=== PATIENT | female | born 1985 | race Caucasian/White ===

== ENCOUNTER 2016-12-18 19:23 | Emergency (ER) | payer OTHER ==
[2016-12-18 19:31] VITALS: BP 136/78; PULSE 82; TEMP 97.5; BMI 31.1
--- NOTE | 2016-12-18 20:12 | PDOC ---
History of Present Illness - General Chief Complaint: Pain Stated Complaint: ABD PAIN Time Seen by Provider: 12/18/16 19:32 History Source: Patient Exam Limitations: No Limitations - History of Present Illness Travel History: No Timing/Duration: reports: intermittent Abdominal Pain Onset Location: reports: LLQ Pain Radiation: reports: no radiation Past History - Travel Traveled outside of the country in the last 30 days: No Close contact w/someone who was outside of country & ill: No - Past Medical History Allergies/Adverse Reactions: Allergies Allergy/AdvReac Type Severity Reaction Status Date / Time No Known Allergies Allergy Verified 12/18/16 19:31 Home Medications: Ambulatory Orders NK [No Known Home Medication] 12/18/16 Asthma: No Cancer: No Cardiac Disorders: No Diabetes: No HTN: No Seizures: No Thyroid Disease: No - Reproductive History (#): 2 Para: 0 Cervical CA: No Dysfunctional Uterine Bleeding: No Ectopic : No Endometrial CA: No Polycystic Ovaries: No Therapeutic (s) & number: Yes (1) Tubal Ligation: No Spontaneous : 0 - Immunization History Immunization Up to Date: Yes - Psycho/Social/Smoking Cessation Hx Anxiety: No Suicidal Ideation: No Smoking Status: No Smoking History: Never smoked Years of Tobacco Use: 0 Have you smoked in the past 12 months: No Number of Cigarettes Smoked Daily: 0 Cigars Per Day: 0 Information on smoking cessation initiated: No Hx Alcohol Use: No Drug/Substance Use Hx: No Substance Use Type: None Hx Substance Use Treatment: No Abd/GI Specific PMHX - Complaint Specific PMHX Colitis: No Diverticulitis: No Gall Bladder Disease: No GERD: No Hepatitis: No Review of Systems - Review of Systems Able to Perform ROS?: Yes Comments:: 12/18/16 20:10 CONSTITUTIONAL: Absent: fever, chills, diaphoresis, generalized weakness, malaise, loss of appetite HEENT: Absent: rhinorrhea, nasal congestion, throat pain, throat swelling, difficulty swallowing, mouth swelling, ear pain, eye pain, visual Changes CARDIOVASCULAR: Absent: chest pain, loss of consciousness, palpitations, irregular heart rate, peripheral edema RESPIRATORY: Absent: cough, shortness of breath, dyspnea with exertion, orthopnea, wheezing, stridor, hemoptysis GASTROINTESTINAL: LLQ pain on palp Absent: abdominal distension, nausea, vomiting, diarrhea, constipation, melena , hematochezia GENITOURINARY: Absent: dysuria, frequency, urgency, hesitancy, hematuria, flank pain, genital pain MUSCULOSKELETAL: Absent: myalgia, arthralgia, joint swelling SKIN: Absent: rash, itching, pallor HEMATOLOGIC/IMMUNOLOGIC: Absent: easy bleeding, easy bruising, lymphadenopathy, frequent infections ENDOCRINE: Absent: unexplained weight gain, unexplained weight loss, heat intolerance, cold intolerance NEUROLOGIC: Absent: headache, focal weakness or paresthesias, dizziness, unsteady gait, seizure, mental status changes, bladder or bowel incontinence PSYCHIATRIC: Absent: anxiety, depression, suicidal or homicidal ideation, hallucinations. Is the patient limited Serbian proficient: No *Physical Exam - Vital Signs Last Vital Signs Temp Pulse Resp BP Pulse Ox 97.5 F L 82 16 136/78 99 12/18/16 19:28 12/18/16 19:28 12/18/16 19:28 12/18/16 19:28 12/18/16 19:28 - Physical Exam Comments: 12/18/16 20:10 GENERAL: Well developed, well nourished. Awake and alert. No acute distress. HEENT: Normocephalic, atraumatic. PERRLA, EOMI. No conjunctival pallor. Sclera are non- icteric. Moist mucous membranes. Oropharynx is clear. NECK: Supple. Full ROM. No JVD. Carotid pulses 2+ and symmetric, without bruits. No thyromegaly. No lymphadenopathy. CARDIOVASCULAR: Regular rate and rhythm. No murmurs, rubs, or gallops. Distal pulses are 2+ and symmetric. PULMONARY: No evidence of respiratory distress. Lungs clear to auscultation bilaterally. No wheezing, rales or rhonchi. ABDOMINAL: +LLQ pain Soft. Non-distended. No rebound or guarding. No organomegaly. Normoactive bowel sounds. MUSCULOSKELETAL Normal range of motion at all joints. No bony deformities or tenderness. No CVA tenderness. EXTREMITIES: No cyanosis. No clubbing. No edema. No calf tenderness. SKIN: Warm and dry. Normal capillary refill. No rashes. No jaundice. NEUROLOGICAL: Alert, awake, appropriate. Cranial nerves 2-12 intact. No deficits to light touch and temperature in face, upper extremities and lower extremities. No motor deficits in the in face, upper extremities and lower extremities. Normoreflexic in the upper and lower extremities. Normal speech. Toes are down- going bilaterally. Gait is normal without ataxia. PSYCHIATRIC: Cooperative. Good eye contact. Appropriate mood and affect. ED Treatment Course - LABORATORY CBC & Chemistry Diagram: 12/18/16 20:22 12/18/16 20:22 Progress Note - Progress Note Progress Note: 31-year-old female presents to the emergency department complaining of LLQ and left suprapubic abdominal pain. Pain is described as 8/10 discomfort that is unable to describe the type of pain. The pain is exacerbated on movements and there are no alleviating factors. Pain is associated with some nausea but no vomiting area patient denies fever, chills, headache, dizziness, lightheadedness , chest pain, shortness of breath, urinary symptoms: Frequency/urgency/hesitancy , hematuria. LMP: 11/26/2016 2034hrs: Patient was informed that she needs a CAT scan of her abdomen and pelvis with by mouth and IV contrast to rule out appendicitis vs diverticulitis. Patient adamantly refuses to have a CAT scan done. Patient says she will have a transvaginal ultrasound to R/O ovarian cyst and will sign out AGAINST MEDICAL ADVICE for the abdominal CAT scan. Patient was advised to return back to the emergency department immediately for persistent/consistent/ worsening or severe pain. Patient agrees with the plan. *DC/Admit/Observation/Transfer Diagnosis at time of Disposition: Cyst of ovary Qualifiers: Laterality: left Qualified Code(s): N83.20 - Unspecified ovarian cysts - Discharge Dispostion Disposition: HOME Condition at time of disposition: Fair - Referrals Referrals: Alec Waldron MD [Staff Physician] - - Patient Instructions Printed Discharge Instructions: DI for Ovarian Cyst Additional Instructions: Follow up with your physician/Allergist Immunologist You refused the CAT scan while in the emergency department today for lower abdominal pains. Please return back to the emergency department for any severe/ persistent or worsening symptoms.
[2016-12-18] MEDS ORDERED: SODIUM CHLORIDE 1,000 ML IV STA (20:13)
[2016-12-18 20:37] LABS: BASOPHIL 0.5 % (0-2.0); EOSINOPHIL 1.2 % (0-4.5); MCH 30.1 pg (25.7-33.7); MCHC 33.7 g/dl (32.0-36.0); MEAN CELL VOLUME 89.2 fl (80-96); NEUTROPHILS 62.8 % (42.8-82.8); PLATELET COUNT 283 K/MM3 (134-434); RDW 13.4 % (11.6-15.6); WHITE BLOOD COUNT 9.1 K/mm3 (4.0-10.0)
[2016-12-18 20:48] LABS: URINE APPEARANCE CLEAR; URINE BILIRUBIN NEGATIVE (NEGATIVE); URINE BLOOD NEGATIVE (NEGATIVE); URINE COLOR YELLOW; URINE GLUCOSE (UA) NEGATIVE (NEGATIVE); URINE KETONE NEGATIVE (NEGATIVE); URINE NITRITE NEGATIVE (NEGATIVE); URINE PROTEIN NEGATIVE (NEGATIVE); URINE UROBILINOGEN NEGATIVE E.U./dl (0.2-1.0)
[2016-12-18 20:51] LABS: URINE LEUK ESTERASE TRACE (NEGATIVE)
[2016-12-18 20:53] LABS: URINE MUCUS RARE; URINE RBC 2 /hpf (0-3); URINE WBC 7 /hpf (3-5)
[2016-12-18 21:08] LABS: ALBUMIN 4.4 g/dl (3.4-5.0); ALK PHOS 74 U/L (45-117); ANION GAP 8 (8-16); BILIRUBIN,TOTAL 0.3 mg/dL (0.2-1.0); CALCIUM 9.3 mg/dL (8.5-10.1); CO2 28 mmol/L (21-32); CREATININE 0.7 mg/dL (0.55-1.02); GLUCOSE,RANDOM 109 mg/dL (74-106); SGOT/AST 11 U/L (15-37); SGPT/ALT 24 U/L (12-78)
[2016-12-18] MEDS ORDERED: KETOROLAC TROMETHAMINE 30 MG/1 ML VIAL IVPUSH ONE (21:53)
[2016-12-18] MEDS ORDERED: KETOROLAC TROMETHAMINE 30 MG/1 ML VIAL ONE (21:54)
== END 2016-12-18 23:42 | disposition home or self-care (01) ==
LOC: JER 19:23 → SUPCPDRO 19:23 → JER 23:42
PROC: 3E0337Z Introduction of Electrolytic and Water Balance Substance into Peripheral Vein, Percutaneous Approach (ICD-10-PCS; principal; 2016-12-18)
PROC: 3E0333Z Introduction of Anti-inflammatory into Peripheral Vein, Percutaneous Approach (ICD-10-PCS; 2016-12-18)
DX: N83.292 Other ovarian cyst, left side (principal); N83.291 Other ovarian cyst, right side
CPT/HCPCS: 36415; 76830-TC; 80053; 81003; 81015; 84703; 85025; 99283-25

== ENCOUNTER 2017-06-19 21:38 | Emergency (ER) | payer OTHER ==
[2017-06-19 21:44] VITALS: BP 115/65; PULSE 102; TEMP 98.5; BMI 31.1
[2017-06-19 23:27] LABS: BASOPHIL 0.5 % (0-2.0); MCH 31.1 pg (25.7-33.7); MCHC 34.4 g/dl (32.0-36.0); MEAN CELL VOLUME 90.5 fl (80-96); MEAN PLT VOLUME 7.7 fl (7.5-11.1); NEUTROPHILS 69.8 % (42.8-82.8); PLATELET COUNT 213 K/MM3 (134-434); RDW 12.9 % (11.6-15.6); WHITE BLOOD COUNT 9.4 K/mm3 (4.0-10.0)
[2017-06-19 23:31] LABS: URINE APPEARANCE SLCLOUDY; URINE BILIRUBIN NEGATIVE (NEGATIVE); URINE BLOOD 3+ (NEGATIVE); URINE COLOR YELLOW; URINE GLUCOSE (UA) NEGATIVE (NEGATIVE); URINE KETONE NEGATIVE (NEGATIVE); URINE LEUK ESTERASE TRACE (NEGATIVE); URINE NITRITE NEGATIVE (NEGATIVE); URINE UROBILINOGEN NEGATIVE mg/dL (0.2-1.0)
--- NOTE | 2017-06-19 23:38 | PDOC ---
History of Present Illness - General Chief Complaint: Pain, Acute Stated Complaint: ABDOMINAL PAIN Time Seen by Provider: 06/19/17 22:47 - History of Present Illness Initial Comments: 06/19/17 23:34 CHIEF COMPLAINT: abdominal pain, diarrhea HISTORY OF PRESENT ILLNESS: 31 yo F with no PMH presents to ED with abdominal pain and diarrhea x 1 day. Patient reports that she has had 4 episodes of diarrhea since last night around 11pm, last episode of diarrhea was today at 3 pm. Patient states she is currently menstruating. She denies any rectal bleeding or blood in the stool. Patient denies any nausea, vomiting, fever, or chills, and states she does not remember what she ate yesterday. PAST MEDICAL HISTORY: Denies past medical history FAMILY HISTORY: Denies SOCIAL HISTORY: Denies tobacco, alcohol, illicit drug use. SURGICAL HISTORY: ALLERGIES: No known drug allergies REVIEW OF SYSTEMS General/Constitutional: Denies fever or chills. Denies weakness, weight change. HEENT: Denies change in vision. Denies ear pain or discharge. Denies sore throat. Cardiovascular: Denies chest pain or shortness of breath. Respiratory: Denies cough, wheezing, or hemoptysis. Gastrointestinal: Diffuse abdominal pain, diarrhea x 1 day. Denies nausea, vomiting. Denies rectal bleeding. Genitourinary: Denies dysuria, frequency, or change in urination. Musculoskeletal: Denies joint or muscle swelling or pain. Denies neck or back pain. Skin and breasts: Denies rash or easy bruising. Neurologic: Denies headache, vertigo, loss of consciousness, or loss of sensation. PHYSICAL EXAM General Appearance: Well-appearing, appropriately dressed. No apparent distress. HEENT: EOMI, PERRLA. No conjunctival pallor. No photophobia, scleral icterus. Respiratory/Chest: Lungs CTAB. Cardiovascular: RRR. S1, S2. Gastrointestinal/Abdominal: Hyperactive bowel sounds. Abdomen soft, non- distended. No tenderness or rebound tenderness. No organomegaly, pulsatile mass, guarding, hernia, hepatomegaly, splenomegaly. Musculoskeletal/Extremities: Normal inspection. FROM of all extremities, normal capillary refill. Pelvis Stable. No CVA tenderness. No tenderness to extremities, pedal edema, swelling, erythema or deformity. Integumentary: Appropriate color, dry, warm. No cyanosis, erythema, jaundice or rash Neurologic: asp net developer II-XII intact. Fully oriented, alert. Appropriate mood/affect. Motor strength 5/5. No appreciable EOM palsy, facial droop or sensory deficit. Past History - Past Medical History Allergies/Adverse Reactions: Allergies Allergy/AdvReac Type Severity Reaction Status Date / Time No Known Allergies Allergy Verified 12/18/16 19:31 Home Medications: Ambulatory Orders Loperamide HCl/Simethicone [Imodium Multi-Symptom Rel Cplt] 1 tab PO Q6H PRN # 28 tablet 06/20/17 Asthma: No Cancer: No Cardiac Disorders: No Diabetes: No HTN: No Seizures: No Thyroid Disease: No - Reproductive History Is Patient Now?: No (#): 2 Para: 0 Cervical CA: No Dysfunctional Uterine Bleeding: No Ectopic : No Endometrial CA: No Polycystic Ovaries: No Therapeutic (s) & number: Yes (1) Tubal Ligation: No Spontaneous : 0 - Immunization History Immunization Up to Date: Yes - Psycho/Social/Smoking Cessation Hx Anxiety: No Suicidal Ideation: No Smoking Status: No Smoking History: Never smoked Years of Tobacco Use: 0 Have you smoked in the past 12 months: No Number of Cigarettes Smoked Daily: 0 Cigars Per Day: 0 Hx Alcohol Use: No Drug/Substance Use Hx: No Substance Use Type: None Hx Substance Use Treatment: No Abd/GI Specific PMHX - Complaint Specific PMHX Colitis: No Diverticulitis: No Gall Bladder Disease: No GERD: No Hepatitis: No *Physical Exam - Vital Signs Last Vital Signs Temp Pulse Resp BP Pulse Ox 98.5 F 102 H 16 115/65 98 06/19/17 21:43 06/19/17 21:43 06/19/17 21:43 06/19/17 21:43 06/19/17 21:43 ED Treatment Course - LABORATORY CBC & Chemistry Diagram: 06/19/17 23:15 06/19/17 23:15 - ADDITIONAL ORDERS Additional order review: 06/19/17 23:15 RBC 4.40 MCV 90.5 MCHC 34.4 RDW 12.9 MPV 7.7 Neutrophils % 69.8 Lymphocytes % 19.1 D Monocytes % 9.6 Eosinophils % 1.0 Basophils % 0.5 Medical Decision Making - Medical Decision Making 06/19/17 23:38 31 yo F with no PMH presents to ED with abdominal pain and diarrhea x 1 day. -CBC, CMP -UA, UCx 06/20/17 02:09 Labs unremarkable. *DC/Admit/Observation/Transfer Diagnosis at time of Disposition: Diarrhea Qualifiers: Diarrhea type: unspecified type Qualified Code(s): R19.7 - Diarrhea, unspecified - Discharge Dispostion Admit: No - Prescriptions Prescriptions: Loperamide HCl/Simethicone [Imodium Multi-Symptom Rel Cplt] 1 tab PO Q6H PRN # 28 tablet PRN Reason: Diarrhea - Referrals Referrals: Jomar Sotelo [Primary Care Provider] - - Patient Instructions Printed Discharge Instructions: DI for Diarrhea and Traveler's Diarrhea -- Adult Additional Instructions: Please take medications as prescribed and follow up with your primary care doctor within the next week. If you experience persistent diarrhea despite the medications, rectal bleeding, vomiting, fever, or any new or worsening symptoms , please return to the ER.
[2017-06-19 23:41] LABS: URINE PROTEIN 1+ (NEGATIVE)
[2017-06-19 23:47] LABS: URINE RBC 1839 /hpf (0-3); URINE WBC 21 /hpf (3-5)
[2017-06-19 23:48] LABS: URINE BACTERIA RARE /hpf (NONE SEEN); URINE MUCUS MANY
[2017-06-19 23:52] LABS: ANION GAP 8 (8-16); CALCIUM 8.6 mg/dL (8.5-10.1); CO2 28 mmol/L (21-32); CREATININE 0.6 mg/dL (0.55-1.02); GLUCOSE,RANDOM 106 mg/dL (74-106); SGOT/AST 8 U/L (15-37); SGPT/ALT 21 U/L (12-78)
[2017-06-19 23:54] LABS: BILIRUBIN,TOTAL 0.5 mg/dL (0.2-1.0); TOT PROT 7.2 g/dl (6.4-8.2)
[2017-06-19 23:55] LABS: ALK PHOS 66 U/L (45-117)
[2017-06-20] MEDS ORDERED: LOPERAMIDE HCL 2 MG CAPSULE PO ONE (00:13)
[2017-06-20] MEDS ORDERED: SIMETHICONE 80 MG TAB.CHEW (FP) PO ONE (00:14)
[2017-06-20] MEDS ORDERED: LOPERAMIDE HCL 2 MG CAPSULE ONE (00:20)
--- NOTE | 2017-06-23 08:33 | PDOC ---
History of Present Illness - General Chief Complaint: Pain, Acute Stated Complaint: ABDOMINAL PAIN Time Seen by Provider: 06/19/17 22:47 Past History - Past Medical History Allergies/Adverse Reactions: Allergies Allergy/AdvReac Type Severity Reaction Status Date / Time No Known Allergies Allergy Verified 12/18/16 19:31 Home Medications: Ambulatory Orders Loperamide HCl/Simethicone [Imodium Multi-Symptom Rel Cplt] 1 tab PO Q6H PRN # 28 tablet 06/20/17 Asthma: No Cancer: No Cardiac Disorders: No Diabetes: No HTN: No Seizures: No Thyroid Disease: No - Reproductive History Is Patient Now?: No (#): 2 Para: 0 Cervical CA: No Dysfunctional Uterine Bleeding: No Ectopic : No Endometrial CA: No Polycystic Ovaries: No Therapeutic (s) & number: Yes (1) Tubal Ligation: No Spontaneous : 0 - Immunization History Immunization Up to Date: Yes - Psycho/Social/Smoking Cessation Hx Anxiety: No Suicidal Ideation: No Smoking Status: No Smoking History: Never smoked Years of Tobacco Use: 0 Have you smoked in the past 12 months: No Number of Cigarettes Smoked Daily: 0 Cigars Per Day: 0 Hx Alcohol Use: No Drug/Substance Use Hx: No Substance Use Type: None Hx Substance Use Treatment: No *Physical Exam - Vital Signs Last Vital Signs Temp Pulse Resp BP Pulse Ox 98.5 F 102 H 16 115/65 98 06/19/17 21:43 06/19/17 21:43 06/19/17 21:43 06/19/17 21:43 06/19/17 21:43 ED Treatment Course - LABORATORY CBC & Chemistry Diagram: 06/19/17 23:15 06/19/17 23:15 - ADDITIONAL ORDERS Additional order review: 06/19/17 23:15 Urine Culture - Final Urine - Urine Clean Catch Contaminated: Please Repeat 06/19/17 23:15 RBC 4.40 MCV 90.5 MCHC 34.4 RDW 12.9 MPV 7.7 Neutrophils % 69.8 Lymphocytes % 19.1 D Monocytes % 9.6 Eosinophils % 1.0 Basophils % 0.5 - Medications Given in the ED: ED Medications Discontinued Medications Generic Name Dose Route Start Last Admin Trade Name Freq PRN Reason Stop Dose Admin Loperamide HCl 4 mg 06/20/17 00:13 06/20/17 00:32 Imodium - PO 06/20/17 00:14 4 mg ONCE ONE Administration Simethicone 80 mg 06/20/17 00:14 06/20/17 00:32 Mylicon - PO 06/20/17 00:15 80 mg ONCE ONE Administration Medical Decision Making - Medical Decision Making 06/23/17 08:29 Patient seen and examined with an BUSINESS ADMINISTRATION INSTRUCTOR Cathi. Agree with assessment and plan. *DC/Admit/Observation/Transfer Diagnosis at time of Disposition: Diarrhea Qualifiers: Diarrhea type: unspecified type Qualified Code(s): R19.7 - Diarrhea, unspecified - Discharge Dispostion Disposition: HOME Condition at time of disposition: Stable - Prescriptions Prescriptions: Loperamide HCl/Simethicone [Imodium Multi-Symptom Rel Cplt] 1 tab PO Q6H PRN # 28 tablet PRN Reason: Diarrhea - Referrals Referrals: Jomar Sotelo [Primary Care Provider] - - Patient Instructions Printed Discharge Instructions: DI for Diarrhea and Traveler's Diarrhea -- Adult Additional Instructions: Please take medications as prescribed and follow up with your primary care doctor within the next week. If you experience persistent diarrhea despite the medications, rectal bleeding, vomiting, fever, or any new or worsening symptoms , please return to the ER. - Post Discharge Activity
== END 2017-06-20 00:47 | disposition home or self-care (01) ==
LOC: JER 21:38
DX: R19.7 Diarrhea, unspecified (principal)
CPT/HCPCS: 36415; 80053; 81003; 81015; 83690; 84703; 85025; 87086; 99282-25

== ENCOUNTER 2017-07-24 15:08 | Emergency (ER) | payer OTHER ==
[2017-07-24 15:11] VITALS: BMI 30.7
--- NOTE | 2017-07-24 16:20 | PDOC ---
Attending Attestation - Resident Resident Name: Neeru Ferris - ED Attending Attestation I have performed the following: I have examined & evaluated the patient, The case was reviewed & discussed with the resident, I agree w/resident's findings & plan, Exceptions are as noted - HPI HPI: 07/24/17 16:49 31yo F hx ovarian cyst p/w left sided pelvic pain since . Pain is squeezing and constant and at times radiating to L flank. 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 Reports pain was a 5/10 on but is a 3/10 today. Feels like her previous ovarian cyst pain. +nausea , no vomiting. Denies diarrhea. Denies abd surgeries. Denies abd distention, had a normal BM this morning. Denies vaginal DC, dysuria, bleeding, frequency. Sexually active with 1 partner for many years. Hx chlamydia 10yrs ago. LMP . Otherwise denies fevers, chills, CP, SOB, LE edema, rashes, or dysuria. - Physicial Exam PE: 07/24/17 17:10 GENERAL: Awake, alert, and fully oriented, in no acute distress HEAD: No signs of trauma EYES: PERRLA, EOMI, sclera anicteric, conjunctiva clear ENT: Auricles normal inspection, hearing grossly normal, nares patent, oropharynx clear without exudates. Moist mucosa NECK: Normal ROM, supple, no lymphadenopathy, JVD, or masses LUNGS: Breath sounds equal, clear to auscultation bilaterally. No wheezes, and no crackles HEART: Regular rate and rhythm, normal S1 and S2, no murmurs, rubs or gallops ABDOMEN: Soft, nontender, normoactive bowel sounds. No guarding, no rebound. No masses. No CVAT DENTURE MODEL MAKER: Normal external genitalia, os is closed, no midline or adnexal ttp, no vaginal DC or bleeding. No CMT. EXTREMITIES: Normal range of motion, no edema. No clubbing or cyanosis. No cords, erythema, or tenderness NEUROLOGICAL: Normal speech, cranial nerves intact, negative pronator drift, 5/ 5 strength in all 4 extremities, normal sensation to light touch in all 4 extremities, normal cerebellar exam, normal gait, normal reflexes and tone SKIN: Warm, Dry, normal turgor, no rashes or lesions noted. - Medical Decision Making 07/24/17 17:15 31yo F hx ovarian cysts p/w L sided pelvic pain since . Exam benign with no ttp on exam and normal DENTURE MODEL MAKER exam. Likely ovarian cyst but in a young menstruating female, ectopic also on differential. Will also consider diverticulitis vs UTI vs pyelo if TVUS negative. -labs -UPT -UA -TVUS -pain control -reassess
[2017-07-24 16:36] LABS: URINE APPEARANCE CLEAR; URINE BILIRUBIN NEGATIVE (NEGATIVE); URINE BLOOD 2+ (NEGATIVE); URINE COLOR LTYELLOW; URINE GLUCOSE (UA) NEGATIVE (NEGATIVE); URINE KETONE NEGATIVE (NEGATIVE); URINE LEUK ESTERASE NEGATIVE (NEGATIVE); URINE NITRITE NEGATIVE (NEGATIVE); URINE PROTEIN NEGATIVE (NEGATIVE); URINE UROBILINOGEN NEGATIVE mg/dL (0.2-1.0)
[2017-07-24 16:55] LABS: URINE MUCUS RARE; URINE RBC 1 /hpf (0-3); URINE WBC 1 /hpf (3-5)
[2017-07-24] MEDS ORDERED: KETOROLAC TROMETHAMINE 15 MG/ML VIAL IVPUSH ONE (17:03)
[2017-07-24] MEDS ORDERED: KETOROLAC TROMETHAMINE 15 MG/ML VIAL ONE (17:25)
[2017-07-24 17:28] LABS: BASOPHIL 0.6 % (0-2.0); EOSINOPHIL 1.2 % (0-4.5); MCH 31.4 pg (25.7-33.7); MCHC 34.6 g/dl (32.0-36.0); MEAN CELL VOLUME 90.9 fl (80-96); MEAN PLT VOLUME 7.4 fl (7.5-11.1); NEUTROPHILS 65.6 % (42.8-82.8); PLATELET COUNT 273 K/MM3 (134-434); RDW 13.1 % (11.6-15.6); WHITE BLOOD COUNT 9.9 K/mm3 (4.0-10.0)
--- NOTE | 2017-07-24 17:34 | PDOC ---
History of Present Illness - General Chief Complaint: Pain Stated Complaint: ABD PAIN Time Seen by Provider: 07/24/17 15:28 History Source: Patient Exam Limitations: No Limitations - History of Present Illness Initial Comments: 31yo F with PMH of Left ovarian cyst presents with Left lower abdominal pain. Pt reports pain began on (2 days ago). Pain is described as squeezing , constant, rated 5/10, sometimes radiating to Left flank. Pain is exacerbated with movement. Pt took Motrin which did help mitigate the pain. Pt also c/o vomiting and chills on when pain began, none since . She has had this type of pain before, and it feels like when she had the ovarian cyst. Pt's [id number] was able to watch the kids which allowed pt to come to ER today. 07/24/17 17:26 Past History - Past Medical History Allergies/Adverse Reactions: Allergies Allergy/AdvReac Type Severity Reaction Status Date / Time No Known Allergies Allergy Verified 07/24/17 15:11 Home Medications: Ambulatory Orders NK [No Known Home Medication] 07/24/17 Asthma: No Cancer: No Cardiac Disorders: No Diabetes: No HTN: No Seizures: No Thyroid Disease: No Other medical history: ovarian cyst - Surgical History Other Surgical History: 12/201507/24/17 17:34 - Reproductive History LMP comment: 07/17/17 (#): 2 Para: 0 Cervical CA: No Dysfunctional Uterine Bleeding: No Ectopic : No Endometrial CA: No Polycystic Ovaries: No Therapeutic (s) & number: Yes (1) Tubal Ligation: No Spontaneous : 0 - Immunization History Immunization Up to Date: Yes - Psycho/Social/Smoking Cessation Hx Anxiety: No Suicidal Ideation: No Smoking Status: No Smoking History: Never smoked Years of Tobacco Use: 0 Have you smoked in the past 12 months: No Number of Cigarettes Smoked Daily: 0 Cigars Per Day: 0 Information on smoking cessation initiated: No Hx Alcohol Use: No Drug/Substance Use Hx: No Substance Use Type: None Hx Substance Use Treatment: No Review of Systems - Review of Systems Able to Perform ROS?: Yes Is the patient limited Burundian proficient: No Constitutional: No: Chills, Diaphoresis, Fever HEENTM: No: Recent change in vision, Ear Pain, Nose Pain, Nose Congestion, Throat Pain Respiratory: No: Cough, Orthopnea, Shortness of Breath, Stridor, Wheezing Cardiac (ROS): No: Chest Pain, Edema, Irregular Heart Rate, Lightheadedness, Palpitations, Syncope, Chest Tightness ABD/GI: No: Abdominal Distended, Constipated, Diarrhea, Nausea, Vomiting, Abdominal cramping : No: Burning, Dysuria, Discharge, Hematuria Musculoskeletal: No: Joint Pain, Muscle Pain Integumentary: No: Bruising, Erythema, Rash Neurological: No: Headache, Numbness, Dizziness *Physical Exam - Vital Signs Last Vital Signs Temp Pulse Resp BP Pulse Ox 98.6 F 83 20 127/80 99 07/24/17 15:08 07/24/17 15:08 07/24/17 15:08 07/24/17 15:07/24/17 15:08 - Physical Exam General Appearance: Yes: Nourished, Appropriately Dressed. No: Apparent Distress HEENT: positive: EOMI, Normal Voice, Other (moist mucous membranes). negative: Pale Conjunctivae, Scleral Icterus (R), Scleral Icterus (L) Neck: positive: Trachea midline, Normal Thyroid, Supple. negative: Lymphadenopathy (R), Lymphadenopathy (L) Respiratory/Chest: positive: Lungs Clear, Normal Breath Sounds. negative: Respiratory Distress, Accessory Muscle Use Cardiovascular: positive: Regular Rhythm, Regular Rate, S1, S2. negative: Murmur Female Pelvic Exam: negative: CMT, adnexal tenderness Gastrointestinal/Abdominal: positive: Soft, Tenderness (Left lower quadrant/ suprapubic). negative: Distended, Guarding, Rebound Musculoskeletal: negative: CVA Tenderness, Decreased Range of Motion Extremity: negative: Swelling, Calf Tenderness, Erythema Integumentary: positive: Dry, Warm. negative: Rash Neurologic: positive: Fully Oriented, Alert, Normal Mood/Affect, Normal Response , Motor Strength 5/5 ED Treatment Course - LABORATORY CBC & Chemistry Diagram: 07/24/17 17:20 07/24/17 17:20 - ADDITIONAL ORDERS Additional order review: Laboratory Results 07/24/17 16:30 Urine Color Ltyellow Urine Appearance Clear Urine pH 6.0 Urine Protein Negative Urine Glucose (UA) Negative Urine Ketones Negative Urine Blood 2+ H Urine Nitrite Negative Urine Bilirubin Negative Urine Urobilinogen Negative Ur Leukocyte Esterase Negative Urine RBC 1 Urine WBC 1 Ur Epithelial Cells Rare Urine Mucus Rare - RADIOLOGY Radiology Studies Ordered: Category Date Time Status TRANSVAGINAL ULTRASOUND US [US] Stat Ultrasound 07/24/17 17:03 Ordered Medical Decision Making - Medical Decision Making 31yo F with PMH of Left ovarian cyst presents with Left lower abdominal / suprapubic pain x 2 days. Pt reports hx of chlamydia once 10 yrs ago. Pt denies hx of PID, nephrolithiasis. Ddx: ovarian cyst/rupture/torsion, PID, nephrolithiasis, pyelonephrosis On physical exam: (-) CVA tenderness, (-) cervical motion tenderness and (-) adnexal tenderness Pvc Loader: Dr. Roque at [facility], urine CBC with diff, CMP transvaginal US Toradol 15mg IVpush given for pain 07/24/17 17:39 07/24/17 19:37 urine (-) UA reveals +2 blood -> pt just finishing her menstrual cycle CBC with diff and CMP wnl transvaginal US reveals Left ovary measures 9.6cm x 3.2cm x 6.5cm and contains 2 hyperechoic cysts that may represent a dermoid. Called placed to [facility] ([facility], Dr. Aguirre is emergency communications operator). 07/24/17 20:39 3rd call placed to Dr. Aguirre. Waiting for a callback. 07/24/17 20:57 Pt can go home and f/u with Gynecology on an outpatient basis per Dr. Aguirre. *DC/Admit/Observation/Transfer Diagnosis at time of Disposition: Complex cyst of left ovary - Discharge Dispostion Disposition: HOME Condition at time of disposition: Improved Admit: No - Referrals Referrals: Jomar Sotelo [Primary Care Provider] - Graciela Roque DO [Staff Physician] - - Patient Instructions Printed Discharge Instructions: DI for Ovarian Cyst Additional Instructions: Please follow-up with Pvc Loader Dr. Roque on Wednesday or Wednesday (07/26/17 or ). Please return to the hospital for persistent or worsening symptoms of pain, or for any other medical emergency.
[2017-07-24 17:56] LABS: ALBUMIN 4.5 g/dl (3.4-5.0); ALK PHOS 68 U/L (45-117); ANION GAP 8 (8-16); BILIRUBIN,TOTAL 0.3 mg/dL (0.2-1.0); CALCIUM 9.2 mg/dL (8.5-10.1); CO2 29 mmol/L (21-32); CREATININE 0.7 mg/dL (0.55-1.02); GLUCOSE,RANDOM 117 mg/dL (74-106); SGOT/AST 8 U/L (15-37); SGPT/ALT 22 U/L (12-78)
[2017-07-24 19:23] VITALS: TEMP 98.5
[2017-07-24 21:10] VITALS: BP 108/72; PULSE 82
== END 2017-07-24 21:10 | disposition home or self-care (01) ==
LOC: JER 15:08
PROC: 3E0333Z Introduction of Anti-inflammatory into Peripheral Vein, Percutaneous Approach (ICD-10-PCS; principal; 2017-07-24)
DX: N83.292 Other ovarian cyst, left side (principal)
CPT/HCPCS: 36415; 76830-TC; 80053; 81003; 81015; 84703; 85025; 87086; 96374; 99284-25

== ENCOUNTER 2017-08-19 05:04 | Day surgery (SDC) | payer OTHER ==
[2017-08-17 10:33] VITALS: BMI 29.6
[2017-08-19] MEDS ORDERED: IBUPROFEN 800 MG/8 ML IJ IVPB PRN (07:15)
[2017-08-19] MEDS ORDERED: ACETAMINOPHEN 325 MG TABLET (FP) PO PRN (07:15)
[2017-08-19] MEDS ORDERED: LACTATED RINGERS SOLUTION 1,000 ML IV SCH (07:15)
--- NOTE | 2017-08-19 07:16 | HP ---
History & Physical Update - History History: No Change - Physical Physical: No Change - Assessment Assessment: No Change - Plan Plan: No Change (ovarian cyst - for laparosocpic ovarian cystectomy, possible oophorectomy)
[2017-08-19] MEDS ORDERED: MIDAZOLAM HCL 2 MG/2 ML SINGLE DOSE VIAL ONE (07:31)
[2017-08-19] MEDS ORDERED: SUCCINYLCHOLINE CHLORIDE 200 MG/10 ML VIAL ONE (07:31)
[2017-08-19] MEDS ORDERED: PROPOFOL 20 ML ONE (07:31)
[2017-08-19] MEDS ORDERED: ROCURONIUM BROMIDE 50 MG/5 ML VIAL ONE (07:33)
[2017-08-19] MEDS ORDERED: GLYCOPYRROLATE 0.2 MG/1 ML VIAL ONE (08:04)
[2017-08-19] MEDS ORDERED: DEXAMETHASONE SOD PHOSPHATE 4 MG/1 ML VIAL ONE (08:04)
[2017-08-19] MEDS ORDERED: KETOROLAC TROMETHAMINE 30 MG/1 ML VIAL ONE ×2 (08:13)
[2017-08-19] MEDS ORDERED: NEOSTIGMINE METHYLSULFATE 0.5 MG/ML - 10 ML MDV ONE (08:13)
[2017-08-19] MEDS ORDERED: HYDROmorphone HCL/PF 1 MG/ML VIAL (FOR PYXIS CHARGING ONLY) ONE ×2 (08:15→08:50)
[2017-08-19] MEDS ORDERED: ONDANSETRON 4 MG/2 ML VIAL IVPUSH PRN (08:33)
[2017-08-19] MEDS ORDERED: oxyCODONE HCL 5 MG TABLET PO PRN (08:33)
[2017-08-19] MEDS ORDERED: ESMOLOL HCL 10 ML ONE (08:41)
--- NOTE | 2017-08-19 08:56 | OP ---
Operative Note - Note: Operative Date: 08/19/17 (dictation number [id number]) Pre-Operative Diagnosis: left ovarian cyst Operation: laparoscopic left oophorectomy Findings: left adnexal torsion X 3 Post-Operative Diagnosis: Same as Pre-op Surgeon: Graciela Roque Town Administrator: Chano Norwood Anesthesiologist/CONSUMER INSIGHT ANALYST: Karina Sims Anesthesia: General Estimated Blood Loss (mls): 20 Operative Report Dictated: Yes
[2017-08-19] MEDS ORDERED: ADENOSINE 6 MG/2 ML VIAL IVPUSH ONE (08:57)
--- NOTE | 2017-08-19 09:21 | OP ---
DATE OF OPERATION: 08/19/2017 PREOPERATIVE DIAGNOSIS: Pelvic pain and left ovarian cyst. POSTOPERATIVE DIAGNOSIS: Pelvic pain and left ovarian cyst, left adnexal torsion x3. SURGEON: Graciela Roque DO HELPER DRIVER: JARROD Garcia ANESTHESIA: Valencia Sims, who provided general anesthesia. SPECIMENS: Included left ovary. ESTIMATED BLOOD LOSS: 20 mL. COMPLICATIONS: None. DISPOSITION: Stable to PACU. BRIEF HISTORY AND PROCEDURE: Patient is a 31-year-old female who had presented to the office with complaints of pelvic pain, diagnosed with a left ovarian cyst. The patient initially had opted to observe the cyst and await surgical intervention. After the ovarian cyst had persisted for approximately 6 months, the patient elected to undergo laparoscopic removal of the ovarian cyst, possible removal of the ovary. Patient was admitted to [facility] on August 19, 2017, in the outpatient setting. Consents for the procedure which were signed in the office were confirmed upon admission. The patient was taken back to the operating room where she was given general anesthesia by Valencia Sims and placed in the dorsal lithotomy position. A Downey catheter was placed under sterile conditions. The patient was prepped and draped in the usual sterile fashion and a hard timeout was performed. A 5-mm skin incision was created in the umbilicus, and the Veress needle was placed intraabdominally. The abdomen was insufflated with CO2 gas, and then a 5-mm trocar was placed intraabdominally. After confirmation of intraabdominal placement by visualization with the camera, the 2 bilateral lower quadrants were placed under direct visualization, 5 mm in the left lower quadrant, 11 mm in the right lower quadrant. After observation of the bilateral fallopian tubes and ovaries, the left ovary appeared to be enlarged with a cyst, and the left tube and ovary appeared to be torsed approximately 3 times. The ovary and left fallopian tube were detorsed at this time, and upon evaluation of the ovary there appeared to be no distinct viable ovarian tissue remaining. It appeared the cyst had encompassed the entire ovarian stroma. At this point it was decided to remove the entire ovary. The ovary was dissected off its attachment to the fallopian tube and to the uterus using the LigaSure device, and the specimen was placed in the anterior pelvis. Examination of the surgical site revealed a small amount of bleeding which was cauterized with the LigaSure device. Next, an EndoCatch bag was placed into the 11-mm trocar site, and the cyst was removed in its entirety without rupture through the 11-mm trocar site. Next, the inspection of the surgical site revealed good hemostasis. The fascia of the right lower quadrant port was reapproximated with a rklwvw-zv-slcic suture using 0 Vicryl from above, using a UR6 needle, and then inspection with the camera afterwards revealed good closure and no intraabdominal contents adhered to the incision site. One last suture with the Ruperto-Rome device was placed to ensure fascial closure under direct visualization with the scope. Next, the abdomen was desufflated, the trocars were removed, the skin was reapproximated using 0 Biosyn suture in a subcuticular fashion. Marcaine was placed subdermally, and the skin was reapproximated using Dermabond suture. The Downey catheter was removed. The patient was awoken from anesthesia. Sponge, needle, and instrument counts were reported to be correct. She was then taken to the PACU to recover in stable condition. GRACIELA ROQUE DO /[id number]
[2017-08-19] MEDS ORDERED: LABETALOL HCL 5 MG/1 ML (100MG/20 ML VIAL) IVPUSH ONE (09:22)
[2017-08-19 11:18] VITALS: TEMP 98.9
--- NOTE | 2017-08-19 12:54 | SURG ---
Surgery Mri Ct Tech Note Mri Ct Tech: Chano Norwood PA-C Date of Service: 08/19/17 Diagnosis: Pre-op diagnosis --> Left ovarian cyst Intra-op Findings --> Left adnexal torsion X 3 Procedure: Laparoscopic left oophorectomy I was present for the entirety of the operative procedure. For further detail, please refer to operative report. Visit type - Case Type Case Type: Scheduled Admission - New patient This patient is new to me today: Yes Date on this admission: 08/19/17
--- NOTE | 2017-08-19 14:10 | EKG ---
Test Reason : Blood Pressure : / mmHG Vent. Rate : 135 BPM Atrial Rate : 135 BPM P-R Int : 132 ms QRS Dur : 090 ms QT Int : 294 ms P-R-T Axes : 057 038 026 degrees QTc Int : 441 ms SINUS TACHYCARDIA WITH OCCASIONAL PREMATURE VENTRICULAR COMPLEXES OTHERWISE NORMAL ECG NO PREVIOUS ECGS AVAILABLE Confirmed by DARYN COATES MD ([id number]) on 08/19/2017 2:10:20 PM Referred By: Confirmed By:DARYN COATES MD
[2017-08-19 15:54] VITALS: BP 118/51; PULSE 88
--- NOTE | 2017-08-20 14:00 | PATH ---
Surgical Pathology Report Patient Name: ZOLTAN ROA [facility]. Rec. #: [id number] /Age/Gender: 1985 (Age: 31) / F Account: [id number] Location: [facility] SURGICAL Taken: 08/19/2017 Received: 08/19/2017 Reported: 08/20/2017 Physicians: Graciela Roque M.D. Specimen(s) Received LEFT OVARY Clinical History Left ovarian cyst Final Diagnosis OVARY, LEFT, OOPHORECTOMY: BENIGN CYSTADENOFIBROMA, PREDOMINANTLY SEROUS, WITH FOCAL MUCINOUS (ENDOCERVICAL) LINING. CYSTIC FOLLICLES, FOCALY HEMORRHAGIC. Electronically Signed Vladimir Stevenson M.D. Gross Description Received in formalin labeled "left ovary" are 2 portions of a soft tissue measuring 3.2 x 1.5 x 0.4 cm and 4.7 x 4.3 x 2.3 cm. The outer surfaces are pink-lagos and smooth. Sectioning of the larger portion displays ovarian parenchyma with multiple intact and focally disrupted cysts containing clear serous fluid. There are multiple additional hemorrhagic cysts identified. Sectioning of the smaller portion of tissue displays foci of hemorrhage. Radio Electronics Officer sections are submitted in 7 cassettes as follows: 1-6-larger portion of tissue; 7-smaller portion of tissue. 08/19/201708/19/2017
== END 2017-08-19 16:05 | disposition home or self-care (01) ==
LOC: JASU-SURG 05:04
PROVIDERS: ATTEND Obstetrics & Gynecology
PROC: 0UT14ZZ Resection of Left Ovary, Percutaneous Endoscopic Approach (ICD-10-PCS; principal; 2017-08-19 07:30)
DX: D27.1 Benign neoplasm of left ovary (principal); N83.53 Torsion of ovary, ovarian pedicle and fallopian tube
CPT/HCPCS: 88307-TC; 93005; 93010; 94760

== ENCOUNTER 2017-08-21 15:06 | Emergency (ER) | payer OTHER ==
[2017-08-21 15:10] VITALS: TEMP 98.6; BMI 30.3
[2017-08-21] MEDS ORDERED: ACETAMINOPHEN 325 MG TABLET (FP) PO ONE (15:37)
--- NOTE | 2017-08-21 15:37 | PDOC ---
History of Present Illness - General Chief Complaint: Lightheaded Stated Complaint: LIGHTHEADED Time Seen by Provider: 08/21/17 15:15 History Source: Patient Exam Limitations: No Limitations - History of Present Illness Initial Comments: 08/21/17 15:32 The patient is a 31 year old female, with a significant past medical history of ovarian cyst pod #2 s/p oopherectomy, who presents to the emergency department with lightheadedness. Patient states she woke up this morning feeling weak and lightheaded, which has been constant since. Patient has had good po intake since surgery and her last meal was at 12:00. Patient's LMP was august 16. Patient denies any fever, chills, n/v/d/c, chest pain, SOB, dysuria, hematuria, vaginal bleeding Allergies: NKDA Past surgical history: oopherectomy Social history: denies PMD - Dr. Sotelo 08/21/17 15:43 Past History - Past Medical History Allergies/Adverse Reactions: Allergies Allergy/AdvReac Type Severity Reaction Status Date / Time No Known Allergies Allergy Verified 08/21/17 15:10 Home Medications: Ambulatory Orders NK [No Known Home Medication] 08/21/17 Asthma: No Cancer: No Cardiac Disorders: No Diabetes: No HTN: No Seizures: No Thyroid Disease: No - Surgical History Abdominal Surgery: Yes (left ovary removal due to cysts) - Reproductive History (#): 2 Para: 0 Cervical CA: No Dysfunctional Uterine Bleeding: No Ectopic : No Endometrial CA: No Polycystic Ovaries: No Therapeutic (s) & number: Yes (1) Tubal Ligation: No Spontaneous : 0 - Immunization History Immunization Up to Date: Yes - Suicide/Smoking/Psychosocial Hx Smoking Status: No Smoking History: Never smoked Years of Tobacco Use: 0 Have you smoked in the past 12 months: No Number of Cigarettes Smoked Daily: 0 Cigars Per Day: 0 Information on smoking cessation initiated: No Hx Alcohol Use: No Drug/Substance Use Hx: No Substance Use Type: None Hx Substance Use Treatment: No Review of Systems - Review of Systems Able to Perform ROS?: Yes Comments:: 08/21/17 15:32 GENERAL/CONSTITUTIONAL: No fever or chills. No weakness. HEAD, EYES, EARS, NOSE AND THROAT: No change in vision. No ear pain or discharge. No sore throat. CARDIOVASCULAR: No chest pain or shortness of breath RESPIRATORY: No cough, wheezing, or hemoptysis. GASTROINTESTINAL: No nausea, vomiting, diarrhea or constipation. GENITOURINARY: No dysuria, frequency, or change in urination. MUSCULOSKELETAL: No joint or muscle swelling or pain. No neck or back pain. SKIN: No rash NEUROLOGIC: +headache and lightheadedness, No vertigo, loss of consciousness, or change in strength/sensation. ENDOCRINE: No increased thirst. No abnormal weight change HEMATOLOGIC/LYMPHATIC: No anemia, easy bleeding, or history of blood clots. ALLERGIC/IMMUNOLOGIC: No hives or skin allergy. *Physical Exam - Vital Signs Last Vital Signs Temp Pulse Resp BP Pulse Ox 98.6 F 91 H 18 132/69 97 08/21/17 15:07 08/21/17 15:07 08/21/17 15:07 08/21/17 15:07 08/21/17 15:07 - Physical Exam Comments: 08/21/17 15:32 GENERAL: Awake, alert, and fully oriented, in no acute distress HEAD: No signs of trauma, normocephalic, atraumatic EYES: PERRLA, EOMI, sclera anicteric, conjunctiva clear ENT: Auricles normal inspection, hearing grossly normal, nares patent, oropharynx clear without exudates. Moist mucosa NECK: Normal ROM, supple, no lymphadenopathy, JVD, or masses LUNGS: No distress, speaks full sentences, clear to auscultation bilaterally HEART: Regular rate and rhythm, normal S1 and S2, no murmurs, rubs or gallops, peripheral pulses normal and equal bilaterally. ABDOMEN: Soft, +abdominal tenderness (mostly in LLQ), normoactive bowel sounds. No guarding, no rebound. No masses EXTREMITIES: Normal inspection, Normal range of motion, no edema. No clubbing or cyanosis. NEUROLOGICAL: Cranial nerves II through XII grossly intact. Normal speech, normal gait, no focal sensorimotor deficits SKIN: Warm, Dry, normal turgor, no rashes or lesions noted. ED Treatment Course - LABORATORY CBC & Chemistry Diagram: 08/21/17 16:20 08/21/17 16:20 Medical Decision Making - Medical Decision Making 08/21/17 15:43 The patient is a 31 year old female, with a significant past medical history of ovarian cyst pod #2 s/p oopherectomy, who presents to the emergency department with lightheadedness. Given hx and pe, will get CBC, CMP, UA, Upreg, TSH, EKG, sx control 08/21/17 18:18 Patient's labs are unremarkable. Patient feels much better. Patient is stable for discharge *DC/Admit/Observation/Transfer Diagnosis at time of Disposition: Lightheadedness - Referrals Referrals: Russ Cowan MD [Staff Physician] - - Patient Instructions Printed Discharge Instructions: DI for Headache Additional Instructions: Please follow up with your primary care provider and dry box tender. A referral to a neurologist has been provided for you for your chronic headaches. Please drink plenty of fluids. If you have chest pain, shortness of breath, or any new/worsening symptoms, please come back to the hospital immediately.
[2017-08-21] MEDS ORDERED: ACETAMINOPHEN 325 MG TABLET (FP) ONE (15:49)
[2017-08-21] MEDS ORDERED: METOCLOPRAMIDE HCL INJECTION 10 MG/2 ML VIAL IVPB ONE (16:09)
[2017-08-21] MEDS ORDERED: SODIUM CHLORIDE 1,000 ML IV STA (16:10)
--- NOTE | 2017-08-21 16:16 | PDOC ---
Attending Attestation - Resident Resident Name: Clive Huitron - ED Attending Attestation I have performed the following: I have examined & evaluated the patient, The case was reviewed & discussed with the resident, I agree w/resident's findings & plan, Exceptions are as noted - HPI HPI: 08/21/17 16:15 31 F with h/o migraines, ovarian cyst s/p R oophorectomy 2 days ago presenting to ER with 1 day of headache and lightheadedness. She states that she woke up this morning with a headache. Denies any N/V. Denies F/C. Denies neck stiffness. Denies thunderclap headache. Pt states that this feels similar to her usual migraines. Pt reports mild pain around her surgical site, denies any vaginal bleeding or discharge. Denies dysuria or flank pain. - Physicial Exam PE: 08/21/17 16:20 "GENERAL: Awake, alert, and fully oriented, in no acute distress HEAD: No signs of trauma EYES: PERRLA, EOMI, sclera anicteric, conjunctiva clear ENT: Auricles normal inspection, hearing grossly normal, nares patent, oropharynx clear without exudates. Moist mucosa NECK: Nontender, no stepoffs, Normal ROM, supple, no lymphadenopathy, JVD, or masses LUNGS: Breath sounds equal, clear to auscultation bilaterally. No wheezes, and no crackles HEART: Regular rate and rhythm, normal S1 and S2, no murmurs, rubs or gallops ABDOMEN: surgical incision well healing, Soft, nontender, normoactive bowel sounds. No guarding, no rebound. No masses EXTREMITIES: Normal range of motion, no edema. No clubbing or cyanosis. No cords, erythema, or tenderness NEUROLOGICAL: Cranial nerves II through XII intact. 5/5 strength and sensation in all extremities, Normal speech, normal gait, cerebellar function intact SKIN: Warm, Dry, normal turgor, no rashes or lesions noted. " - Medical Decision Making 08/21/17 16:20 31 F with headache, likely migraine. No red flags for SAH/meningitis/venous sinus thrombosis. No neuro deficits. Will r/o infectious process with UA and CXR and check CBC to r/o anemia given recent surgery. EKG with sinus tachycardia but reassessment of vitals shows normal HR in 80s. EKG otherwise with normal intervals, no signs of arrhythmia. - Labs - CXR, UA - IVF, tylenol, reglan 08/21/17 18:18 Pt reassessed s/p migraine cocktail. Now asymptomatic. Pt states she feels well and would like to go home. Labs unremarkable. CXR and UA without obvious signs of infection. Pt is well appearing, asymptomatic, and with stable vitals. Now clinically stable for DC.
[2017-08-21] MEDS ORDERED: METOCLOPRAMIDE HCL INJECTION 10 MG/2 ML VIAL ONE (16:29)
[2017-08-21 16:47] LABS: BASOPHIL 0.5 % (0-2.0); EOSINOPHIL 0.5 % (0-4.5); MCH 31.3 pg (25.7-33.7); MCHC 34.2 g/dl (32.0-36.0); MEAN CELL VOLUME 91.5 fl (80-96); MEAN PLT VOLUME 7.8 fl (7.5-11.1); NEUTROPHILS 69.8 % (42.8-82.8); PLATELET COUNT 253 K/MM3 (134-434); RDW 13.2 % (11.6-15.6); WHITE BLOOD COUNT 9.6 K/mm3 (4.0-10.0)
[2017-08-21 16:53] LABS: URINE APPEARANCE CLEAR; URINE BILIRUBIN NEGATIVE (NEGATIVE); URINE BLOOD 1+ (NEGATIVE); URINE COLOR STRAW; URINE GLUCOSE (UA) NEGATIVE (NEGATIVE); URINE KETONE NEGATIVE (NEGATIVE); URINE NITRITE NEGATIVE (NEGATIVE); URINE PROTEIN NEGATIVE (NEGATIVE); URINE UROBILINOGEN NEGATIVE mg/dL (0.2-1.0)
[2017-08-21 17:00] LABS: URINE BACTERIA RARE /hpf (NONE SEEN); URINE MUCUS RARE; URINE RBC 1 /hpf (0-3)
[2017-08-21 17:12] LABS: ALBUMIN 3.8 g/dl (3.4-5.0); ALK PHOS 61 U/L (45-117); ANION GAP 6 (8-16); BILIRUBIN,TOTAL 0.3 mg/dL (0.2-1.0); CALCIUM 9.2 mg/dL (8.5-10.1); CO2 30 mmol/L (21-32); CREATININE 0.7 mg/dL (0.55-1.02); GLUCOSE,RANDOM 107 mg/dL (74-106); SGOT/AST 16 U/L (15-37); SGPT/ALT 27 U/L (12-78); TOT PROT 7.5 g/dl (6.4-8.2)
[2017-08-21 18:22] LABS: URINE LEUK ESTERASE TRACE (NEGATIVE)
[2017-08-21 18:49] VITALS: BP 129/67; PULSE 85
--- NOTE | 2017-08-22 16:18 | EKG ---
Test Reason : Blood Pressure : / mmHG Vent. Rate : 081 BPM Atrial Rate : 081 BPM P-R Int : 148 ms QRS Dur : 084 ms QT Int : 348 ms P-R-T Axes : 051 045 030 degrees QTc Int : 404 ms NORMAL SINUS RHYTHM POSSIBLE LEFT ATRIAL ENLARGEMENT BORDERLINE ECG WHEN COMPARED WITH ECG OF 19-AUG-2017 09:16, PREMATURE VENTRICULAR COMPLEXES ARE NO LONGER PRESENT VENT. RATE HAS DECREASED BY 54 BPM NONSPECIFIC T WAVE ABNORMALITY, IMPROVED IN INFERIOR LEADS REPEAT EKG IF CLINICALLY INDICATED Confirmed by SHON MURILLO MD ([id number]) on 08/22/2017 4:17:34 PM Referred By: Confirmed By:SHON MURILLO MD
== END 2017-08-21 18:49 | disposition home or self-care (01) ==
LOC: JER 15:06
PROC: 3E033GC Introduction of Other Therapeutic Substance into Peripheral Vein, Percutaneous Approach (ICD-10-PCS; principal; 2017-08-21)
PROC: 3E0337Z Introduction of Electrolytic and Water Balance Substance into Peripheral Vein, Percutaneous Approach (ICD-10-PCS; 2017-08-21)
DX: R42 Dizziness and giddiness (principal)
CPT/HCPCS: 36415; 71020-TC; 80053; 81003; 81015; 84443; 84703; 85025; 87086; 87186; 93005; 93010; 96361; 96374; 99282-25

== ENCOUNTER 2019-03-11 23:17 | Emergency (ER) | payer OTHER ==
[2019-03-11 23:30] VITALS: BP 105/60; PULSE 73; TEMP 97.8; BMI 28.3
[2019-03-12] MEDS ORDERED: LIDOCAINE 5% TOPICAL PATCH TP ONE (00:51)
[2019-03-12] MEDS ORDERED: ACETAMINOPHEN 500 MG TABLET (FP) PO ONE (00:51)
--- NOTE | 2019-03-12 00:53 | PDOC ---
History of Present Illness - General Chief Complaint: Pain Stated Complaint: BACK PAIN Time Seen by Provider: 03/12/19 00:23 History Source: Patient Exam Limitations: No Limitations - History of Present Illness Initial Comments: 03/12/19 00:52 Pt is a 33yo F with no significant PMH presenting to ED with complaints of lower back pain x2 weeks with nausea and dizziness today. Pt states that she has had similar pains in the past and have been on and off for the past few years but she worried today due to the nausea and dizziness. Pain is mainly in the lower back and pt feels pain going down into the R leg. Denies numbness/ tingling, weakness, back injury, falls, unsteady gait, abdominal pain, vomiting , diarrhea, constipation, chest pain, sob, headaches. She has not been taking anything for the pain. PMH: none PSH: L ovarian cystectomy Meds: none Allergies: nkda Past History - Past Medical History Allergies/Adverse Reactions: Allergies Allergy/AdvReac Type Severity Reaction Status Date / Time No Known Allergies Allergy Verified 03/11/19 23:29 Home Medications: Ambulatory Orders NK [No Known Home Medication] 08/21/17 Asthma: No Cancer: No Cardiac Disorders: No COPD: No Diabetes: No HTN: No Seizures: No Thyroid Disease: No - Surgical History Abdominal Surgery: Yes (left ovary removal due to cysts) - Reproductive History (#): 2 Para: 0 Cervical CA: No Dysfunctional Uterine Bleeding: No Ectopic : No Endometrial CA: No Polycystic Ovaries: No Therapeutic (s) & number: Yes (1) Tubal Ligation: No Spontaneous : 0 - Immunization History Immunization Up to Date: Yes - Suicide/Smoking/Psychosocial Hx Smoking Status: No Smoking History: Never smoked Years of Tobacco Use: 0 Have you smoked in the past 12 months: No Number of Cigarettes Smoked Daily: 0 Cigars Per Day: 0 Information on smoking cessation initiated: No Hx Alcohol Use: No Drug/Substance Use Hx: No Substance Use Type: None Hx Substance Use Treatment: No Review of Systems - Review of Systems Constitutional: No: Symptoms Reported HEENTM: No: Symptoms Reported Respiratory: No: Symptoms reported Cardiac (ROS): No: Symptoms Reported ABD/GI: Yes: Nausea : No: Symptoms Reported Musculoskeletal: Yes: See HPI, Back Pain, Muscle Pain Integumentary: No: Symptoms Reported Neurological: No: Symptoms reported *Physical Exam - Vital Signs Last Vital Signs Temp Pulse Resp BP Pulse Ox 97.8 F 73 17 105/60 100 03/11/19 23:26 03/11/19 23:26 03/11/19 23:26 03/11/19 23:26 03/11/19 23:26 - Physical Exam General Appearance: Yes: Nourished, Appropriately Dressed. No: Apparent Distress HEENT: positive: EOMI, JASON, Normal ENT Inspection Neck: positive: Trachea midline, Supple. negative: Lymphadenopathy (R), Lymphadenopathy (L) Respiratory/Chest: positive: Lungs Clear, Normal Breath Sounds Cardiovascular: positive: Regular Rhythm, Regular Rate, S1, S2 Vascular Pulses: Carotid (R): 2+, Carotid (L): 2+, Dorsalis-Pedis (R): 2+, Doralis-Pedis (L): 2+ Gastrointestinal/Abdominal: positive: Normal Bowel Sounds, Soft. negative: Tender Musculoskeletal: positive: Muscle Spasm (R lower back). negative: CVA Tenderness, Vertebral Tenderness Extremity: positive: Normal Capillary Refill. 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 Pt states that she has had similar pains in the past and have been on and off for the past few years but she worried today due to the nausea and dizziness. Pain is mainly in the lower back and pt feels pain going down into the R leg. Denies numbness/ tingling, weakness, back injury, falls, unsteady gait, abdominal pain, vomiting , diarrhea, constipation, chest pain, sob, headaches. She has not been taking anything for the pain. Vitals: wnl pE: R lumbar muscular tenderness, no vertebral tenderness, full ROM. sensation intact. no abdominal tenderness ddx includes but not limited to spasm, aaa, R ovarian cyst, malignancy, spinal stenosis, cord compression, pyelonephritis low suspicion for cord compression. most likely back spasms. -labs, ua -tvus, xray -tylenol, lidoderm patch xray appears normal, labs wnl. tvus does not show ovarain cyst on R. could still be pyelo bc pt states she had similar pains in the past and was diagnosed with pyelo. waiting on UA. pt been in ed for 4 hours and still has not produced urine. states that she went to the bathroom prior to ultrasound. pt denies dysuria, frequency, urgency, no CVA tendenress. pt otherwise stable and safe for dc home. pt asked to follow up with pmd to get ua if concerned. pt agrees to plan. *DC/Admit/Observation/Transfer Diagnosis at time of Disposition: Lower back pain Qualifiers: Chronicity: chronic Back pain laterality: right Sciatica presence: without sciatica Qualified Code(s): M54.5 - Low back pain - Discharge Dispostion Disposition: HOME Condition at time of disposition: Improved Decision to Admit order: No - Referrals - Patient Instructions Printed Discharge Instructions: DI for Low Back Pain Additional Instructions: You were seen in the emergency room for lower back pain. The xray and ultrasound were normal. Your blood tests were also normal. I recommend following up with your primary care doctor for further evaluation of your back pain. You can take Tylenol or ibuprofen for the pain as needed. Come back to the emergency room if pain gets worse, you have pain with urination , you develop fever, you have worsening numbness, you are unable to walk or if any new concerning symptom develops. Thank you - Post Discharge Activity
[2019-03-12] MEDS ORDERED: ONDANSETRON 4 MG/2 ML VIAL IVPB ONE (00:57)
[2019-03-12] MEDS ORDERED: SODIUM CHLORIDE 1,000 ML IV STA (00:57)
[2019-03-12 01:27] LABS: EOS % 1.9 % (0-4.5); HEMATOCRIT 42.9 % (32.4-45.2); HEMOGLOBIN 14.6 GM/dL (10.7-15.3); LYMPH % 43.3 % (8-40); MCH 31.7 pg (25.7-33.7); MEAN CELL VOLUME 93.4 fl (80-96); MEAN PLT VOLUME 7.8 fl (7.5-11.1); MONO % 6.3 % (3.8-10.2); NEUT % 47.5 % (42.8-82.8); PLATELET COUNT 278 K/MM3 (134-434); RBC 4.59 M/mm3 (3.60-5.2); WHITE BLOOD COUNT 9.5 K/mm3 (4.0-10.0)
[2019-03-12 01:51] LABS: ALBUMIN 4.2 g/dl (3.4-5.0); ALK PHOS 53 U/L (45-117); ANION GAP 4 MMOL/L (8-16); BILIRUBIN,TOTAL 0.3 mg/dL (0.2-1); BLOOD UREA NITROGEN 16 mg/dL (7-18); CALCIUM 9.9 mg/dL (8.5-10.1); CHLORIDE 105 mmol/L (98-107); CO2 29 mmol/L (21-32); CREATININE 0.7 mg/dL (0.55-1.3); GLUCOSE,RANDOM 106 mg/dL (74-106); POTASSIUM 4.6 mmol/L (3.5-5.1); SGOT/AST 13 U/L (15-37); SGPT/ALT 24 U/L (13-61); SODIUM 138 mmol/L (136-145); TOT PROT 8.1 g/dl (6.4-8.2)
--- NOTE | 2019-03-12 02:10 | PDOC ---
Documentation entered by Margarette Edge SCRIBE, acting as scribe for Kristel Cardona MD. Kristel Cardona MD: This documentation has been prepared by the Minesh castillo Lincy, SCRIBE, under my direction and personally reviewed by me in its entirety. I confirm that the documentation accurately reflects all work, treatment, procedures, and medical decision making performed by me. Attending Attestation - Resident Resident Name: Yessenia Foster - ED Attending Attestation I have performed the following: I have examined & evaluated the patient, The case was reviewed & discussed with the resident, I agree w/resident's findings & plan - HPI HPI: 03/12/19 01:43 The patient is a 33 year old female with chronic back pain history presents to the emergency department with back pain. The patient presents with 2 weeks of back pain, with a new onset of nausea and dizziness. The patient reports the pain radiates down the right leg, denies weakness. The patient reports the pain is chronic, states she has received epidural in the past during delivery. The patient reports the pain is alleviated with laying down.The patient reports a similar pain in the past, she was diagnosed with Kidney infection, pt current does endorse dysuria, denies hematuria.Denies falls, injury or weakness. LMP: Currently. - Physicial Exam PE: 03/12/19 02:10 Agree with resident exam - Medical Decision Making 03/12/19 02:10 Patient Name: ZOLTAN ROA THIS IS A PRELIMINARY REPORT FROM [facility] DATE OF SERVICE: 2019-03-12 01:14:46 IMAGES: 17 EXAM: Ultrasound TRANSVAGINAL ULTRASOUND US HISTORY: Concern for right ovarian cyst COMPARISON: None. FINDINGS: The uterus measures 9.2 cm in length. Endometrium is 8 mm. The right ovary measures 3.9 x 2.3 x 2.1 cm. Doppler imaging demonstrates positive vascular flow. Left ovary is surgically absent IMPRESSION: No acute findings 03/12/19 22:09 Pt stable for discharge
[2019-03-12] MEDS ORDERED: ACETAMINOPHEN 325 MG TABLET (FP) ONE (02:44)
[2019-03-12] MEDS ORDERED: LIDOCAINE 5% TOPICAL PATCH ONE (02:44)
[2019-03-12] MEDS ORDERED: ONDANSETRON 4 MG/2 ML VIAL ONE (02:45)
[2019-03-12] MEDS ORDERED: METHOCARBAMOL 500 MG TABLET PO ONE (05:36)
[2019-03-12] MEDS ORDERED: LACTULOSE 20 GM/30 ML UDC (FOR ORAL USE ONLY) PO ONE (05:36)
[2019-03-12] MEDS ORDERED: LACTULOSE 20 GM/30 ML UDC (FOR ORAL USE ONLY) ONE (06:30)
[2019-03-12] MEDS ORDERED: METHOCARBAMOL 500 MG TABLET ONE (06:31)
[2019-03-12] MEDS ORDERED: LIDOCAINE PATCH REMOVAL MC SCH (22:00)
== END 2019-03-12 07:10 | disposition home or self-care (01) ==
LOC: JER 23:17
PROC: 3E033GC Introduction of Other Therapeutic Substance into Peripheral Vein, Percutaneous Approach (ICD-10-PCS; principal; 2019-03-11)
DX: M54.5 Low back pain (principal); G89.29 Other chronic pain
CPT/HCPCS: 36415; 72100-TC-FY; 76830-TC; 80053; 84703; 85025; 96374; 99281-25; J7030

== ENCOUNTER 2019-09-18 10:58 | Emergency (ER) | payer OTHER ==
[2019-09-18 11:13] VITALS: BMI 32.1
--- NOTE | 2019-09-18 11:28 | PDOC ---
Attending Attestation - Resident Resident Name: MarshallgildaAnuj - ED Attending Attestation I have performed the following: I have examined & evaluated the patient, The case was reviewed & discussed with the resident, I agree w/resident's findings & plan, Exceptions are as noted - HPI HPI: 09/18/19 12:11 33yo female with hx of L ovarian cyst resulting in oophorectomy in the past with 5 days of L sided cp and L humerus pain. Pt states pain does worsen with eating, but over the last 5 days it has become constant. Pt denies assoc n/v/d. No assoc cough or sob. States her chest does feel tight. Denies burning sensation or sour taste in mouth. Denies abd pain. No PE risk factors, no leg swelling or calf cramping. Denies trauma. Denies smoking and control. - Physicial Exam PE: 09/18/19 12:42 Gen: aaox3, nad heent: eomi, mmm heart: +s1s2 reg lungs: cta b/l, L anterior chest ttp abd: soft, nt/nd +bs ext: no c/c/e, radial and pedal pulses intact, L humerus ttp and medial aspect of LUE ttp, reproduces pain, movement of the arm does not reproduce pain, no calf ttp - Medical Decision Making 09/18/19 12:46 a/p: 33yo female with L chest pain and L arm pain x 5 days that has now become constant -will send labs, trop, dimer -pain is pleuritic in nature -some food assoc symptoms -will send renal and liver labs -will monitor and reassess -pt is nontoxic in appearance and in nad 09/18/19 13:18 trop neg dimer neg 09/18/19 14:13 cxr clear 09/18/19 14:26 stable for dc to home Heart Score/ECG Review - ECG Intrepretation Comment:: 09/18/19 13:03 sinus at 89, nl axis, nl interval, no acute st/t wave findings
[2019-09-18] MEDS ORDERED: ACETAMINOPHEN 325 MG TABLET (FP) PO ONE (11:34)
[2019-09-18] MEDS ORDERED: MAG HYDROX/AL HYDROX/SIMETH 30 ML UNIT-DOSE CUP PO ONE (11:34)
[2019-09-18] MEDS ORDERED: FAMOTIDINE 20 MG/50 ML IVPB 20 MG/50 ML MG IVPB ONE ×2 (11:34→12:19)
--- NOTE | 2019-09-18 11:39 | PDOC ---
History of Present Illness - General Chief Complaint: Chest Pain Stated Complaint: CHEST PAIN Time Seen by Provider: 09/18/19 11:17 - History of Present Illness Initial Comments: The pt is a 33F w/ a history of C/S, left oophorectomy years ago who presents for evaluation of 5 days of gradual onset, but now constant, chest pain. The pain is sharp/burning, radiates to her back and left medial upper arm, is worsened with touch, is non-exertional, has not happened before, and she has not tried taking anything for her pain. She endorses intermittent associated dizziness. She denies N/V/C/D, abdominal pain, changes in sensation/strength, trauma/injury , dysuria, or hematuria. 09/18/19 11:35 Past History - Past Medical History Allergies/Adverse Reactions: Allergies Allergy/AdvReac Type Severity Reaction Status Date / Time No Known Allergies Allergy Verified 03/11/19 23:29 Home Medications: Ambulatory Orders NK [No Known Home Medication] 08/21/17 Asthma: No Cancer: No Cardiac Disorders: No COPD: No Diabetes: No HTN: No Seizures: No Thyroid Disease: No - Surgical History Abdominal Surgery: Yes (left ovary removal due to cysts) - Reproductive History (#): 2 Para: 0 Cervical CA: No Dysfunctional Uterine Bleeding: No Ectopic : No Endometrial CA: No Polycystic Ovaries: No Therapeutic (s) & number: Yes (1) Tubal Ligation: No Spontaneous : 0 - Immunization History Immunization Up to Date: Yes - Psycho Social/Smoking Cessation Hx Smoking Status: No Smoking History: Never smoked Years of Tobacco Use: 0 Have you smoked in the past 12 months: No Number of Cigarettes Smoked Daily: 0 Cigars Per Day: 0 Hx Alcohol Use: No Drug/Substance Use Hx: No Substance Use Type: None Hx Substance Use Treatment: No Review of Systems - Review of Systems Able to Perform ROS?: Yes Comments:: GENERAL/CONSTITUTIONAL: No fever or chills. No weakness HEAD, EYES, EARS, NOSE AND THROAT: No change in vision. No change in hearing. No sore throat CARDIOVASCULAR: +left chest pain, denies SOB RESPIRATORY: Denies cough, hemoptysis GASTROINTESTINAL: No nausea, vomiting, diarrhea or constipation GENITOURINARY: No dysuria, frequency, or change in urination MUSCULOSKELETAL: No joint or muscle swelling or pain. No neck pain SKIN: No rash NEUROLOGIC: No headache, loss of consciousness, or change in strength/sensation ENDOCRINE: No increased thirst. No abnormal weight change HEMATOLOGIC/LYMPHATIC: No anemia, easy bleeding, or history of blood clots ALLERGIC/IMMUNOLOGIC: No hives or skin allergy 09/18/19 11:37 Is the patient limited Danish proficient: No *Physical Exam - Vital Signs Last Vital Signs Temp Pulse Resp BP Pulse Ox 99.3 F 85 17 100/59 L 97 09/18/19 11:04 09/18/19 11:04 09/18/19 11:04 09/18/19 11:04 09/18/19 11:04 - Physical Exam Comments: GENERAL: Awake, alert, and oriented to person/place/time, in no acute distress HEAD: No signs of trauma, normocephalic, atraumatic EYES: PERRLA, EOMI, sclera anicteric, conjunctiva clear ENT: Hearing grossly normal, nares patent, oropharynx clear without exudates. Moist mucosa LUNGS: No distress, speaks in full sentences, clear to auscultation bilaterally HEART: Regular rate and rhythm, normal S1 and S2, no murmurs appreciated, peripheral pulses normal and equal bilaterally CHEST: Left mid-clavicular chest wall TTP at 2-3rd ICS ABDOMEN: Soft, nontender, normoactive bowel sounds. No guarding, no rebound EXTREMITIES: Normal inspection, Normal range of motion, no edema. No clubbing or cyanosis NEUROLOGICAL: Cranial nerves II through XII grossly intact. Normal speech, normal gait, no focal sensorimotor deficits SKIN: Warm, Dry 09/18/19 11:37 ED Treatment Course - LABORATORY CBC & Chemistry Diagram: 09/18/19 12:01 09/18/19 12:01 Medical Decision Making - Medical Decision Making The pt is a 33F w/ a history of C/S, left oophorectomy, and BTL who presents for evaluation of 5 days of constant left chest pain that radiates to her left arm and back. Denies OCP use, recent travel, history of blood clots in herself or her family, or history of cancer ED Course Labs sent ECG CXR IVF Tylenol, Maalox for symptomatic relief 09/18/19 11:39 ECG w/ NSR; HR 89; QTc 430; no axis deviation; no GEORGI No leukocytosis No anemia 09/18/19 12:24 Lytes wnl LFTs unremarakble Trop I neg D-dimer neg TSH wnl Serum preg neg 09/18/19 13:29 Will give Toradol for pain Symptoms improved CXR w/o acute pathology Plan for D/C w/ PCP f/u Discharge instructions and return precautions given Patient in agreement and verbalized understanding Dispo: Home 09/18/19 14:14 Discharge - Discharge Information Problems reviewed: Yes Clinical Impression/Diagnosis: Chest pain Qualifiers: Chest pain type: unspecified Qualified Code(s): R07.9 - Chest pain, unspecified Condition: Stable Disposition: HOME - Admission No - Follow up/Referral Referrals: Jomar Sotelo [Primary Care Provider] - - Patient Discharge Instructions Patient Printed Discharge Instructions: DI for Atypical Chest Pain, DI for Musculoskeletal Pain Additional Instructions: You were seen in the Emergency Department for evaluation of chest pain. Your labs and imaging were unremarkable. Your symptoms are likely related to musculoskeletal pain. Review the handout provided at discharge. Follow up with your primary care provider. For pain you may take Tylenol 650mg every 6 hours and Ibuprofen 600mg every 6-8 hours, alternating them each time. Return to the Emergency Department if you develop fevers, chest pain, trouble breathing, worsening pain, change in sensation, worsening symptoms, or any new/ concerning symptoms. - Post Discharge Activity
[2019-09-18] MEDS ORDERED: SODIUM CHLORIDE 0.9% 500 ML INFUS.BAG IV ONE (11:40)
[2019-09-18] MEDS ORDERED: MAG HYDROX/AL HYDROX/SIMETH 30 ML UNIT-DOSE CUP ONE (12:19)
[2019-09-18] MEDS ORDERED: ACETAMINOPHEN 325 MG TABLET (FP) ONE (12:19)
[2019-09-18 12:20] LABS: BASO % 0.6 % (0-2.0); EOS % 2.1 % (0-4.5); HEMATOCRIT 39.9 % (32.4-45.2); LYMPH % 30.7 % (8-40); MCH 32.3 pg (25.7-33.7); MEAN CELL VOLUME 92.2 fl (80-96); MEAN PLT VOLUME 7.7 fl (7.5-11.1); MONO % 6.1 % (3.8-10.2); NEUT % 60.5 % (42.8-82.8); PLATELET COUNT 258 K/MM3 (134-434); RBC 4.33 M/mm3 (3.60-5.2); RDW 13.2 % (11.6-15.6); WHITE BLOOD COUNT 7.7 K/mm3 (4.0-10.0)
[2019-09-18 12:26] LABS: INR 1.08 (0.83-1.09); PROTHROMBIN TIME (PATIENT) 12.8 SEC (9.7-13.0)
[2019-09-18 12:29] LABS: ACTIVATED PTT 30.4 SECONDS (25.2-36.5)
[2019-09-18 13:00] LABS: BILIRUBIN,TOTAL 0.4 mg/dL (0.2-1); BLOOD UREA NITROGEN 11.1 mg/dL (7-18); CALCIUM 9.2 mg/dL (8.5-10.1); CREATININE 0.7 mg/dL (0.55-1.3); POTASSIUM 4.2 mmol/L (3.5-5.1); TOT PROT 7.5 g/dl (6.4-8.2)
[2019-09-18] MEDS ORDERED: KETOROLAC TROMETHAMINE 15 MG/ML VIAL IVPUSH ONE (14:13)
[2019-09-18] MEDS ORDERED: KETOROLAC TROMETHAMINE 15 MG/ML VIAL ONE (14:19)
[2019-09-18 14:35] VITALS: BP 119/73; PULSE 63; TEMP 98
--- NOTE | 2019-09-18 15:06 | EKG ---
Test Reason : Blood Pressure : / mmHG Vent. Rate : 089 BPM Atrial Rate : 089 BPM P-R Int : 156 ms QRS Dur : 090 ms QT Int : 354 ms P-R-T Axes : 060 059 040 degrees QTc Int : 430 ms NORMAL SINUS RHYTHM NORMAL ECG WHEN COMPARED WITH ECG OF 21-AUG-2017 16:34, NO SIGNIFICANT CHANGE WAS FOUND Confirmed by ADENIKE LUX MD ([id number]) on 09/18/2019 3:06:33 PM Referred By: Confirmed By:ADENIKE LUX MD
== END 2019-09-18 14:26 | disposition home or self-care (01) ==
LOC: JER 10:58
PROC: 3E033GC Introduction of Other Therapeutic Substance into Peripheral Vein, Percutaneous Approach (ICD-10-PCS; principal; 2019-09-18)
DX: R07.89 Other chest pain (principal); Z90.721 Acquired absence of ovaries, unilateral
CPT/HCPCS: 36415; 71045-TC-FY; 80053; 84443; 84484; 84703; 85025; 85379; 85610; 85730; 93005; 93010; 96365; 99284-25

== ENCOUNTER 2021-08-06 14:53 | Emergency (ER) | payer OTHER ==
[2021-08-06 15:01] VITALS: BP 143/89; PULSE 99; TEMP 97.8; BMI 27.6
== END 2021-08-06 15:22 | disposition home or self-care (01) ==
LOC: JERFT 14:53
DX: S39.012A Strain of muscle, fascia and tendon of lower back, initial encounter (principal); S16.1XXA Strain of muscle, fascia and tendon at neck level, initial encounter; W01.0XXA Fall on same level from slipping, tripping and stumbling without subsequent striking against object, initial encounter
CPT/HCPCS: 99281-25

== ENCOUNTER 2023-11-27 07:56 | Emergency (ER) | payer BC, OTHER ==
[2023-11-27 08:10] VITALS: BP 114/75; PULSE 91; RESP 18; TEMP 98.5; BMI 28.1
[2023-11-27 08:44] LABS: EPI CELLS 34 /uL (0-25.1); HYALINE CASTS 1 /uL (0-3.1); URINE APPEARANCE CLEAR; URINE BACTERIA 852 /uL (0-1359); URINE BILIRUBIN NEGATIVE (NEGATIVE); URINE COLOR YELLOW; URINE GLUCOSE (UA) NEGATIVE (NEGATIVE); URINE KETONE NEGATIVE (NEGATIVE); URINE LEUK ESTERASE 1+ (NEGATIVE); URINE NITRITE NEGATIVE (NEGATIVE); URINE PROTEIN NEGATIVE (NEGATIVE); URINE RBC 29 /uL (0-23.9); URINE WBC 17 /uL (0-25.8)
[2023-11-27] MEDS ORDERED: NITROFURANTOIN MONOHYD/M-CRYST 100 MG CAPSULE PO ONE (09:09)
[2023-11-27] MEDS ORDERED: NITROFURANTOIN MACROCRYSTAL 50 MG CAPSULE (FP) ONE (09:21)
== END 2023-11-27 09:36 | disposition home or self-care (01) ==
LOC: JERFT 07:56
DX: N30.00 Acute cystitis without hematuria (principal); R30.0 Dysuria; M54.50 Low back pain, unspecified; R35.0 Frequency of micturition
CPT/HCPCS: 81003; 99283-25

== ENCOUNTER 2024-03-30 16:07 | Emergency (ER) | payer OTHER, BC ==
[2024-03-30 16:18] VITALS: BP 110/56; PULSE 85; RESP 18; TEMP 98.3; BMI 29.2
[2024-03-30] MEDS: diazePAM 5 MG TABLET PO ONE (17:05)
[2024-03-30] MEDS ORDERED: ACETAMINOPHEN 500 MG TABLET (FP) PO ONE (17:24)
[2024-03-30] MEDS ORDERED: ACETAMINOPHEN 500 MG TABLET (FP) ONE (17:25)
== END 2024-03-30 17:53 | disposition home or self-care (01) ==
LOC: JERFT 16:07
DX: S29.012A Strain of muscle and tendon of back wall of thorax, initial encounter (principal); V43.52XA Car driver injured in collision with other type car in traffic accident, initial encounter
CPT/HCPCS: 72125-TC; 72128-TC; 99284-25

== ENCOUNTER 2024-06-03 10:39 | Emergency (ER) | payer BC, OTHER ==
[2024-06-03 10:44] VITALS: BP 119/66; PULSE 77; RESP 20; TEMP 98.8; BMI 29.6
[2024-06-03] MEDS ORDERED: ACETAMINOPHEN 500 MG TABLET (FP) ONE (10:56)
[2024-06-03] MEDS: ACETAMINOPHEN 500 MG TABLET (FP) PO ONE (10:58)
[2024-06-03 11:01] LABS: PH,URINE 5.5 (5.0-8.0); URINE APPEARANCE CLEAR; URINE BILIRUBIN NEGATIVE (NEGATIVE); URINE COLOR YELLOW; URINE GLUCOSE (UA) NEGATIVE (NEGATIVE); URINE KETONE NEGATIVE (NEGATIVE); URINE LEUK ESTERASE NEGATIVE (NEGATIVE); URINE NITRITE NEGATIVE (NEGATIVE); URINE PROTEIN NEGATIVE (NEGATIVE); URINE UROBILINOGEN 0.2 mg/dL (0.2-1.0)
[2024-06-03 11:04] LABS: HCG,QUALITATIVE URINE Negative
== END 2024-06-03 13:42 | disposition home or self-care (01) ==
LOC: JERFT 10:39
DX: R30.0 Dysuria (principal); R35.0 Frequency of micturition; R39.15 Urgency of urination; M54.50 Low back pain, unspecified
CPT/HCPCS: 36415; 81003; 84703; 87086; 87491; 87591; 99283-25